=== PATIENT | male | born 1970 | race Caucasian/White ===

== ENCOUNTER → 2017-08-08 | Outpatient (CLI) | payer OTHER ==
--- NOTE | 2017-08-09 08:08 | US ---
EXAM DESCRIPTION: Venous,Lower Extremity RT CLINICAL HISTORY: 47 years, Male, CELLULITIS OF THE LEG COMPARISON: None TECHNIQUE: Duplex venous ultrasound of the right lower extremity was performed. FINDINGS: The right lower extremity veins are fully compressible and demonstrate physiologic responses to augmentation maneuvers. Color Doppler images show no intraluminal filling defect. IMPRESSION: Negative exam. No evidence of DVT in the right lower extremity. Electronically signed by: Andrea Montilla MD 08/09/2017 8:07 AM CDT
== END ==
LOC: US 11:50
PROVIDERS: ATTEND Family Medicine
DX: L03.115 Cellulitis of right lower limb (principal); R60.0 Localized edema

== ENCOUNTER 2017-08-14 12:54 | Inpatient (IN) | payer OTHER ==
--- NOTE | 2017-08-14 12:56 | HP ---
SUPERVISING PHYSICIAN: Jayce Brownlee MD CHIEF COMPLAINT: Cellulitis, right lower extremity. HISTORY OF PRESENT ILLNESS: Mr. Bautista is a 47 year-old male patient of Dr. Cox. He was initially seen last week on Monday for sore throat and right lower extremity cellulitis. He had a positive strep screen in the clinic and was started on Cefzil and Bactrim in for treatment of lower extremity cellulitis. 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 On Monday morning, the leg had not gotten any better at which time he made an appointment to see Dr. Teran on Monday. He denied any recent trauma other than he thinks he may have scraped his lower leg krishna area on the kamla yu at some point in the weeks previous. He was showing very little response to current treatment throughout the last week and had a DVT study done as well for the lower extremity swelling which was negative for any DVT. He was seen in followup today and had shown acute worsening of his swelling and tenseness and redness and pain. Given that he had failed to respond to current treatment with Bactrim and Cefzil, Dr. Teran requested the patient be directly admitted for initiation of parenteral antibiotic therapy and further wound management. The patient was directly admitted from the clinic in stable condition. PAST MEDICAL HISTORY: 1. Hypertension. 2. Seasonal allergies. PAST SURGICAL HISTORY: 1. Rhinoplasty in 2013. 2. Cervical spine surgery in 2012 and 2014. 3. Right knee scope in 2009. CURRENT MEDICATIONS: 1. Vitamin D3, 5000 units daily. 2. Wellbutrin 100 mg daily. 3. Meloxicam 15 mg daily. 4. Hydrochlorothiazide 25 mg daily. 5. Flonase 1 spray in both nostrils daily. 6. Lotrimin cream, one application topical as needed. 7. Amlodipine 10 mg daily. 8. Antibiotic treatment with Bactrim 800/160, one tablet b.i.d. 9. Cefzil 250 mg b.i.d. 10. Metoprolol tartrate 100 mg b.i.d. 11. Lisinopril 40 mg b.i.d. 12. Gabapentin 600 mg t.i.d. ALLERGIES: IODINE AND MORPHINE. FAMILY HISTORY: Father at age 72 secondary to hypertension and cardiac arrhythmia. Mother apparently living with hypertension and lymphoma. SOCIAL HISTORY: The patient lives in [place], [place]. He is . 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 He currently uses smokeless tobacco but has never smoked. He drinks alcohol on a social occasion, typically beer. REVIEW OF SYSTEMS: CONSTITUTIONAL: Denies any fevers or chills. HEENT: Recent treatment for a sore throat with a positive strep screen but denies any current symptoms. No nasal congestion or headaches or earaches. RESPIRATORY: Denies shortness of breath, coughing or wheezing. CARDIOVASCULAR: Denies chest pain, palpitations or syncopal episodes. ABDOMEN: Denies nausea or vomiting. He does have some infrequent diarrhea after he has been started on Bactrim and Cefzil. No abdominal pains. EXTREMITIES: As per history of present illness, lower extremity cellulitis and redness for over a week to the right leg. NEUROLOGICAL: Denies any syncopal episodes, ataxia, seizures or other neurological focal deficits. PHYSICAL EXAMINATION: VITAL SIGNS: Temperature on admission was 97.6, pulse 89, blood pressure 136/86 , respirations 18, saturation 98% on room air. Admission weight was 141.1 kg. GENERAL: The patient appeared to be in no acute distress but obviously in some pain secondary to his right lower extremity cellulitis. He is alert and oriented x 3. HEENT: Tympanic membranes clear bilaterally. Oropharynx pink and moist without any lesions. NECK: Supple, non-tender with full range of motion. No jugular venous distention. CHEST: Clear to auscultation bilaterally without rhonchi, rales, or wheezes. CARDIOVASCULAR: Regular rate and rhythm without appreciable murmurs, rubs, or gallops. ABDOMEN: Obese, soft, non-tender, positive bowel sounds. EXTREMITIES: Left lower extremity has no cyanosis, clubbing, or edema. Right extremity from the patella down to distal portions of the foot shows 1 to 2+ edema with various stages of erythema. On the medial aspect distal end of the tib/fib overlying the medial malleolus there are multiple areas of what appear to be yellow blisters with some serous type drainage but no areas of consolidation or abscess. Pulses were bilaterally equal. Capillary refill brisk. NEUROLOGIC: He is alert and oriented x 3. Facial features are symmetrical. Extraocular movements are within normal limits. Cranial nerves II through XII are grossly intact. LABORATORY: CBC showed a white count of 8,50 with a hemoglobin of 12.4 and hematocrit of 24.4. Platelet count 359,000, differential was pending at time of admission. Chemistries showed normal electrolytes, potassium 4.2, glucose 114, hemoglobin A1C of 5.6. Lactic acid 1.0. Liver functions all within normal limits. C-reactive protein elevated at 18.7. Serum total protein elevated at 8.3 with globulin at 5.1. Urinalysis showed a small amount of bilirubin, otherwise within normal limits. MICROBIOLOGY: Wound culture of the right leg is pending. Blood cultures pending. RADIOLOGY: X-rays of the right ankle, right foot and right tib/fib were completed on admission without any acute findings for fracture or dislocation or foreign bodies. He had a lower extremity DVT study on the right on 08/08/17 that showed per radiology interpretation no evidence of a DVT. ASSESSMENT: 1. Cellulitis, purulent, of the right lower extremity having failed to respond to outpatient treatment plan with both Bactrim and second generation cephalosporin requiring initiation of parental antibiotics and wound management. 2. Hypertension. 3. Seasonal allergies. 4. Recent streptococcal pharyngeal infection treated with Cefzil. PLAN: The patient is going to be admitted directly to the hospital for initiation of parenteral antibiotics to include Unasyn 3 grams every 6 hours along with vancomycin per pharmacy protocol. Antibiotics were started after wound cultures and blood cultures are completed. Will await culture results to further target antibiotic therapy. Dr. Ly has been consulted for assistance in wound management. I have ordered at DVT study of the lower extremity to further rule out a thrombolytic process as the patient is at high risk for DVTs. The patient will be encouraged to stay off his right foot and keep the leg elevated while in bed. Will defer wound management to Dr. Ly. Will resume his home medications until they have been updated and verified in the electronic medical records. Will anticipate his length of stay to be at least 2 to 3 days. Until clinically stable to be transitioned to p.o. antibiotics, the patient will be closely monitored and treated appropriately. #[id number] [facility]
[2017-08-14] MEDS ORDERED: KETOROLAC TROMETHAMINE INJ 30 MG/ML VIAL IV ONE (13:30)
[2017-08-14] MEDS ORDERED: ACETAMINOPHEN 325 MG TAB PO PRN (13:30)
[2017-08-14] MEDS ORDERED: HYDROmorphone HCL INJ 2 MG/ML VIAL ONE (13:30)
[2017-08-14] MEDS ORDERED: KETOROLAC TROMETHAMINE INJ 30 MG/ML VIAL ONE (13:30)
[2017-08-14] MEDS ORDERED: HYDROmorphone HCL INJ 2 MG/ML VIAL IV ONE (13:30)
--- NOTE | 2017-08-14 13:39 | PCM.CORE ---
Physician DVT/VTE - Nurse DVT Assessment & Total Each Risk Factor Represents 3 Points: Medical PT with Hx of OK, CHF, Severe infection/sepsis Each Risk Factor Represents 1 Point: Age 41-60 Each Risk Factor is 1 Point: Varicose Veins/Edema Legs, Obesity (BMI >25) DVT Assessment Score: 6 - 5 or more Very High Risk Treatments: Early Ambulation *, Sequential Compression Device Pharmacological: Enoxaparin 40mg SQ Daily
[2017-08-14] MEDS: IV SET AND CAP CHANGE INJ INJ SCH (13:58)
[2017-08-14] MEDS ORDERED: VANCOMYCIN PER PHARMACY INJ SCH (14:00)
[2017-08-14] MEDS ORDERED: SODIUM CHL 0.9% 100ML MINI-BAG 100 ML IVPB ONE ×3 (14:13→19:26)
[2017-08-14] MEDS ORDERED: AMPICILLIN & SULBACTAM SODIUM 3 GM VIAL ONE ×3 (14:14→19:26)
[2017-08-14] MEDS: HYDROcodone 5MG/APAP 325MG 1 EA TAB PO PRN ×2 (14:26→20:56)
[2017-08-14] MEDS: ENOXAPARIN SODIUM 40 MG/0.4 ML SYG SUBCU SCH (14:27)
[2017-08-14] MEDS: AMPICILLIN & SULBACTAM SODIUM 3 GM in SODIUM CHL 0.9% 100ML MINI-BAG 100 ML IVPB SCH ×2 (14:28→19:38)
--- NOTE | 2017-08-14 14:45 | RAD ---
EXAM DESCRIPTION: Ankle,Right 2 Views CLINICAL HISTORY: 47 years Male, RLE cellulitis COMPARISON: None. FINDINGS: Two views of the right ankle show diffuse soft tissue swelling, slightly worse medially. No acute fracture or malalignment. No joint effusion. No radiopaque foreign body or soft tissue gas. No lytic or sclerotic bone lesion. Calcaneal enthesophyte formation is noted at the insertion sites of the plantar fascia and Achilles tendon. IMPRESSION: Soft tissue swelling without radiographic evidence of osteomyelitis, abscess or other acute right ankle abnormality. Calcaneal spurring. Electronically signed by: Andrea Montilla MD 08/14/2017 2:44 PM CDT
--- NOTE | 2017-08-14 14:46 | RAD ---
EXAM DESCRIPTION: Foot,Right 3 Views CLINICAL HISTORY: 47 years Male, RLE cellulitis COMPARISON: None. FINDINGS: Three views of the right foot show no acute fracture or malalignment. No radiopaque foreign body or soft tissue gas. There is diffuse soft tissue swelling over the right mid and forefoot. Calcaneal enthesophyte formation is noted at the insertion sites of the plantar fascia and Achilles tendon. IMPRESSION: Soft tissue swelling without radiographic evidence of osteomyelitis or abscess. If clinically suspicious of osteomyelitis, MRI should be considered. Calcaneal spurring. Electronically signed by: Andrea Montilla MD 08/14/2017 2:45 PM CDT
--- NOTE | 2017-08-14 14:47 | RAD ---
EXAM DESCRIPTION: Tibia/Fibula,Right CLINICAL HISTORY: 47 years Male, RLE cellulitis COMPARISON: None. FINDINGS: Two views of the right tibia and fibula show no acute fracture or malalignment. No radio opaque foreign body or soft tissue gas. Medial joint space narrowing and medial osteophyte formation are noted in the right knee. IMPRESSION: Degenerative changes in the right knee, otherwise unremarkable exam. Electronically signed by: Andrea Montilla MD 08/14/2017 2:46 PM CDT
[2017-08-14] MEDS ORDERED: VANCOMYCIN HCL INJ 1,000 MG VIAL IVPB ONE ×2 (15:24→19:25)
[2017-08-14] MEDS ORDERED: SODIUM CHLORIDE 0.9% 250ML 250 ML ONE ×2 (15:24→19:24)
[2017-08-14] MEDS ORDERED: VANCOMYCIN HCL INJ 500 MG VIAL ONE ×2 (15:24→19:24)
[2017-08-14] MEDS: VANCOMYCIN HCL INJ 1,000 MG, VANCOMYCIN HCL INJ 500 MG in SODIUM CHLORIDE 0.9% 250ML 25... IVPB SCH ×2 (15:32→23:37)
--- NOTE | 2017-08-14 15:48 | US ---
EXAM DESCRIPTION: Venous,Lower Extremity RT CLINICAL HISTORY: worsening cellulitis of RLE COMPARISON: Ultrasound dated 08/08/2017. TECHNIQUE: Right extremity venous duplex FINDINGS: There is no DVT identified. There is normal color flow observed with good flow augmentation. All deep veins compress normally. IMPRESSION: Negative for DVT Electronically signed by: Aysha Campos MD 08/14/2017 3:46 PM CDT
[2017-08-14] MEDS: hydroCHLOROthiazide 25 MG TAB PO SCH (17:53)
[2017-08-14] MEDS: amLODIPine BESYLATE 5 MG TAB PO SCH (17:53)
[2017-08-14] MEDS: BUPROPION HCL 100 MG PO SCH (17:56)
--- NOTE | 2017-08-14 18:49 | CONS ---
DATE OF CONSULTATION: 08/14/17 REFERRING PHYSICIAN: Hospitalist Service - Jayce Brownlee M.D. and Manas Hoskins NP HISTORY OF PRESENT ILLNESS: Mr. Bautista is a 47 year-old male patient of Dr. Teran's who was seen 6 days ago for a sore throat and cellulitis of his right lower extremity. He was seen by Dr. Teran and a Strep screen was positive, and he was started on Cefzil and Bactrim. On Monday, the leg had not improved. He was seen and showed worsening of the swelling and tenderness, and he was directly admitted from Dr. Teran's office. There is no history of any significant trauma, although the patient does have a scratch on his anterior right leg. He denies fever or chills. He states that the pain is in the posterior right leg. PAST MEDICAL HISTORY: 1. Allergies. 2. Hypertension. PAST SURGICAL HISTORY: 1. Status post rhinoplasty. 2. Cervical spine surgery times 2. 3. Right knee scope. CURRENT MEDICATIONS: 1. Wellbutrin. 2. Meloxicam. 3. Hydrochlorothiazide. 4. Flonase. 5. Lotrimin. 6. Amlodipine. 7. Bactrim. 8. Cefzil. 9. Metoprolol. 10. Lisinopril. 11. Gabapentin. ALLERGIES: IODINE AND MORPHINE. FAMILY HISTORY: Positive for heart disease, hypertension and lymphoma. 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 He has not smoked but uses smokeless tobacco. He drinks alcohol moderately. REVIEW OF SYSTEMS: As noted, he denies fever or chills. Denies significant trauma to his lower extremities. He does complain of daily swelling but usually resolves overnight. He has had no nausea or vomiting, change in his bowel habits. Denies chest pain, shortness of breath. PHYSICAL EXAMINATION: VITAL SIGNS: The patient is afebrile and normotensive. GENERAL: He is currently in no acute distress. He is awake, alert and cooperative. HEENT: Reveals the sclera to be nonicteric. Mucous membranes are moist. NECK: Without adenopathy. CHEST: He has equal breath sounds bilaterally. HEART: Regular rhythm. ABDOMEN: Soft and benign. EXTREMITIES: Right lower extremity reveals 2 to 3+ edema with erythema which is marked by a pen. There is a linear eschar without any significant surrounding erythema. No induration or fluctuance. There is also an area of eschar over the medial malleolus without fluctuance or crepitance. It is tender in the posterior calf. LABORATORY: White count 8,500, hemoglobin 12. Chemistries revealed potassium 4.2, hemoglobin A1c of 5.6. Liver functions within normal limits. C reactive protein is 18.7. Wound culture is pending. X-RAY: X-rays reveal no fractures or foreign bodies. DVT study last week showed no evidence of DVT. IMPRESSION: 1. Cellulitis with edema of the right lower extremity with failed outpatient therapy. 2. Hypertension. 3. Recent streptococcal pharyngitis PLAN: Agree with the plan for IV antibiotics and await cultures. Stress to the patient the need for elevation. Could possibly consider repeating an ultrasound to rule out DVT and/or abscess if the patient fails to resolve quickly. #[id number] [facility]
[2017-08-14] MEDS ORDERED: GABAPENTIN 300 MG CAP ONE (19:24)
[2017-08-14] MEDS ORDERED: LISINOPRIL 10 MG TAB ONE (19:24)
[2017-08-14] MEDS ORDERED: METOPROLOL TARTRATE 50 MG TAB ONE (19:25)
[2017-08-14] MEDS: BIFIDOBACTERIUM INFANTIS 4 MG CAP PO SCH (20:43)
[2017-08-14] MEDS ORDERED: NON-FORMULARY MEDICATION 1 EA MIS (Lisinopril [Lisinopril] 40 MG) PO SCH (21:00)
[2017-08-14] MEDS ORDERED: NON-FORMULARY MEDICATION 1 EA MIS (Metoprolol Tartrate [Metoprolol Tartrate] 100 MG) PO SCH (21:00)
[2017-08-14] MEDS ORDERED: NON-FORMULARY MEDICATION 1 EA MIS (Gabapentin [Gabapentin] 600 MG) PO SCH (21:00)
[2017-08-15] MEDS: AMPICILLIN & SULBACTAM SODIUM 3 GM in SODIUM CHL 0.9% 100ML MINI-BAG 100 ML IVPB SCH ×4 (01:57→20:23)
[2017-08-15] MEDS: HYDROcodone 5MG/APAP 325MG 1 EA TAB PO PRN ×3 (01:57→10:45)
[2017-08-15] MEDS ORDERED: VANCOMYCIN HCL INJ 500 MG VIAL ONE ×3 (07:05→23:28)
[2017-08-15] MEDS ORDERED: SODIUM CHLORIDE 0.9% 250ML 250 ML ONE ×3 (07:05→23:28)
[2017-08-15] MEDS ORDERED: SODIUM CHL 0.9% 100ML MINI-BAG 100 ML IVPB ONE ×3 (07:06→20:19)
[2017-08-15] MEDS ORDERED: VANCOMYCIN HCL INJ 1,000 MG VIAL IVPB ONE ×3 (07:07→23:29)
[2017-08-15] MEDS ORDERED: AMPICILLIN & SULBACTAM SODIUM 3 GM VIAL ONE ×3 (07:07→20:19)
[2017-08-15] MEDS: VANCOMYCIN HCL INJ 1,000 MG, VANCOMYCIN HCL INJ 500 MG in SODIUM CHLORIDE 0.9% 250ML 25... IVPB SCH ×3 (08:30→23:45)
[2017-08-15] MEDS: BIFIDOBACTERIUM INFANTIS 4 MG CAP PO SCH ×2 (08:51→20:39)
[2017-08-15] MEDS: METOPROLOL TARTRATE 50 MG TAB PO SCH ×2 (08:51→16:47)
[2017-08-15] MEDS: amLODIPine BESYLATE 5 MG TAB PO SCH (08:51)
[2017-08-15] MEDS: hydroCHLOROthiazide 25 MG TAB PO SCH (08:51)
[2017-08-15] MEDS: GABAPENTIN 300 MG CAP PO SCH ×3 (08:52→20:39)
[2017-08-15] MEDS: LISINOPRIL 10 MG TAB PO SCH ×2 (08:52→20:39)
[2017-08-15] MEDS: FLUTICASONE PROP 0.05% NASAL 16 GM BTTL BNAS SCH (09:33)
[2017-08-15] MEDS: ENOXAPARIN SODIUM 40 MG/0.4 ML SYG SUBCU SCH (09:33)
[2017-08-15] MEDS: BUPROPION HCL 100 MG PO SCH (09:35)
--- NOTE | 2017-08-15 10:18 | PN ---
SUPERVISING PHYSICIAN: Jayce Brownlee MD DATE: 08/15/17 SUBJECTIVE: The patient feels okay. He feels like he has had some improvement regarding his cellulitis. He is able to walk to the bathroom and back with no problem, but does state that he feels like the muscle in the back of his leg is a little bit tight. He did have Doppler of the lower extremity yesterday which ruled out DVT. He has been placed on Unasyn and vancomycin and has not had any problems tolerating these so far. OBJECTIVE: VITAL SIGNS: Blood pressure 113/72. Heart rate 69. Respiratory rate 18. Temperature 99.2. Oxygen saturation 97%. GENERAL: Mr. Bautista is a 47-year-old male patient who is in no active distress currently. NEUROLOGIC: Alert and oriented. LUNGS: Clear to auscultation bilaterally. CARDIOVASCULAR: Regular rate and rhythm. Normal S1, S2. ABDOMEN: Obese, soft. Positive bowel sounds. GENITOURINARY: Deferred. EXTREMITIES: Lower extremities still with cellulitis to the right lower extremity. Regarding the markings, it appears that the erythema has receded from the marked borders a bit, but is still quite present at this time. Warm to the touch. ASSESSMENT: 1. Right lower extremity cellulitis with an open wound. 2. Hypertension. 3. Recent streptococcal pharyngitis. 4. Seasonal allergies. PLAN: We will continue IV antibiotics at this time. Culture is still pending, so we will cover for resistant organisms with the vancomycin. He seems to be improving with the antibiotics. We will recheck labs in the morning as well. #[id number] [facility]
[2017-08-15] MEDS: HYDROcodone 7.5MG/APAP 325MG 1 EA TAB PO PRN (20:55)
[2017-08-16] MEDS: HYDROcodone 7.5MG/APAP 325MG 1 EA TAB PO PRN ×5 (01:20→20:56)
[2017-08-16] MEDS ORDERED: AMPICILLIN & SULBACTAM SODIUM 3 GM VIAL ONE ×5 (01:34→19:49)
[2017-08-16] MEDS ORDERED: SODIUM CHL 0.9% 100ML MINI-BAG 100 ML IVPB ONE ×5 (01:34→19:49)
[2017-08-16] MEDS: AMPICILLIN & SULBACTAM SODIUM 3 GM in SODIUM CHL 0.9% 100ML MINI-BAG 100 ML IVPB SCH ×4 (02:30→20:20)
[2017-08-16] MEDS: SODIUM CHLORIDE 0.9% (FLUSH) 10 ML SYG IV PRN ×2 (02:31→20:20)
[2017-08-16] MEDS: METOPROLOL TARTRATE 50 MG TAB PO SCH ×2 (07:42→17:20)
[2017-08-16] MEDS ORDERED: VANCOMYCIN HCL INJ 500 MG VIAL ONE ×3 (08:16→19:47)
[2017-08-16] MEDS ORDERED: SODIUM CHLORIDE 0.9% 250ML 250 ML ONE ×3 (08:16→19:47)
[2017-08-16] MEDS ORDERED: VANCOMYCIN HCL INJ 1,000 MG VIAL IVPB ONE ×3 (08:17→19:48)
[2017-08-16] MEDS: VANCOMYCIN HCL INJ 1,000 MG, VANCOMYCIN HCL INJ 500 MG in SODIUM CHLORIDE 0.9% 250ML 25... IVPB SCH ×3 (08:24→23:51)
[2017-08-16] MEDS: GABAPENTIN 300 MG CAP PO SCH ×3 (08:25→20:54)
[2017-08-16] MEDS: BUPROPION 300 MG PO SCH (08:25)
[2017-08-16] MEDS: amLODIPine BESYLATE 5 MG TAB PO SCH (08:25)
[2017-08-16] MEDS: BIFIDOBACTERIUM INFANTIS 4 MG CAP PO SCH ×2 (08:25→20:54)
[2017-08-16] MEDS: hydroCHLOROthiazide 25 MG TAB PO SCH (08:26)
[2017-08-16] MEDS: LISINOPRIL 10 MG TAB PO SCH ×2 (08:26→21:00)
[2017-08-16] MEDS: ENOXAPARIN SODIUM 40 MG/0.4 ML SYG SUBCU SCH (08:26)
--- NOTE | 2017-08-16 08:30 | PN ---
SUPERVISING PHYSICIAN: Jayce Brownlee MD DATE: 08/16/17 SUBJECTIVE: The patient states his pain is pretty controlled, but they did call me last night asking if there could be an increase in the pain medicine, so I went from 5 mg of Hamilton to 7.5 mg of Hamilton. He states that has helped quite a bit. He also states he walks to the bathroom and back, but has some pain with that. I did ask him to walk in the mahmood today a couple of times. OBJECTIVE: VITAL SIGNS: Blood pressure 112/72. Heart rate 73. Respiratory rate 20. Temperature 98.5. Oxygen saturation 94%. GENERAL: Mr. Bautista is a 47-year-old male patient who is in no distress currently. NEUROLOGIC: Alert and oriented. LUNGS: A little bit diminished in the bases, but otherwise clear to auscultation bilaterally. CARDIOVASCULAR: Regular rate and rhythm. Normal S1, S2. ABDOMEN: Obese, soft. Positive bowel sounds. GENITOURINARY: Deferred. EXTREMITIES: Lower extremities still with cellulitis to the right lower extremity, but it is definitely receding from the existing watson. The swelling is reduced. The skin is wrinkling up. It is still warm to the touch. LABORATORY: Labs were reviewed. White count 10.9, hemoglobin 12.1, hematocrit 35.9, platelet count 430. ESR 38, which is an improvement from 73. Chemistries are unremarkable with an improvement in CRP to 8.8 from 18.7. Cultures are still reading negative at this time. ASSESSMENT: 1. Right lower extremity cellulitis with an open wound. 2. Hypertension. 3. Recent streptococcal pharyngitis. 4. Seasonal allergies. PLAN: He shows clinical improvement with improvement in CRP and ESR despite negative cultures. We will continue current antibiotic regimen and continue to recheck labs in the morning as well. #[id number] [facility]
[2017-08-16] MEDS: FLUTICASONE PROP 0.05% NASAL 16 GM BTTL BNAS SCH (08:52)
[2017-08-17] MEDS: AMPICILLIN & SULBACTAM SODIUM 3 GM in SODIUM CHL 0.9% 100ML MINI-BAG 100 ML IVPB SCH ×4 (01:54→20:13)
[2017-08-17] MEDS: HYDROcodone 7.5MG/APAP 325MG 1 EA TAB PO PRN ×3 (01:57→12:56)
[2017-08-17] MEDS ORDERED: SODIUM CHL 0.9% 100ML MINI-BAG 100 ML IVPB ONE ×3 (06:51→20:03)
[2017-08-17] MEDS ORDERED: AMPICILLIN & SULBACTAM SODIUM 3 GM VIAL ONE ×3 (06:51→20:04)
[2017-08-17] MEDS: METOPROLOL TARTRATE 50 MG TAB PO SCH ×2 (07:19→16:31)
[2017-08-17] MEDS ORDERED: VANCOMYCIN HCL INJ 1,000 MG VIAL IVPB ONE ×2 (07:35→20:58)
[2017-08-17] MEDS ORDERED: SODIUM CHLORIDE 0.9% 250ML 250 ML ONE (07:35)
[2017-08-17] MEDS ORDERED: VANCOMYCIN HCL INJ 500 MG VIAL ONE (07:35)
[2017-08-17] MEDS: VANCOMYCIN HCL INJ 1,000 MG, VANCOMYCIN HCL INJ 500 MG in SODIUM CHLORIDE 0.9% 250ML 25... IVPB SCH ×2 (07:59→16:25)
[2017-08-17] MEDS: BUPROPION 300 MG PO SCH (08:00)
[2017-08-17] MEDS: BIFIDOBACTERIUM INFANTIS 4 MG CAP PO SCH ×2 (08:00→21:10)
[2017-08-17] MEDS: amLODIPine BESYLATE 5 MG TAB PO SCH (08:01)
[2017-08-17] MEDS: LISINOPRIL 10 MG TAB PO SCH (08:01)
[2017-08-17] MEDS: GABAPENTIN 300 MG CAP PO SCH ×3 (08:01→21:09)
[2017-08-17] MEDS: hydroCHLOROthiazide 25 MG TAB PO SCH (08:01)
[2017-08-17] MEDS: ENOXAPARIN SODIUM 40 MG/0.4 ML SYG SUBCU SCH (08:04)
[2017-08-17] MEDS: FLUTICASONE PROP 0.05% NASAL 16 GM BTTL BNAS SCH (08:10)
--- NOTE | 2017-08-17 11:23 | PN ---
SUPERVISING PHYSICIAN: Jayce Brownlee MD DATE: 08/17/17 SUBJECTIVE: The patient's pain is controlled at rest. He states he still has some calf pain when he walks. With flexion towards his head he also has some calf pain. Once again, he did have his Doppler on the which was negative for DVT. OBJECTIVE: VITAL SIGNS: Blood pressure 123/76. Heart rate 71. Respiratory rate 14. Temperature 98.4. Oxygen saturation 96%. GENERAL: Mr. Bautista is a 47-year-old male patient who is in no distress. NEUROLOGIC: Alert and oriented. LUNGS: Clear to auscultation bilaterally. CARDIOVASCULAR: Regular rate and rhythm. Normal S1, S2. ABDOMEN: Obese, soft. Positive bowel sounds. GENITOURINARY: Deferred. EXTREMITIES: Lower extremities with continued cellulitis to the lower extremity , but continues to recede from the marked areas. In fact, there is a new marked border and it is even receding from that. Edema seems to be improving as well. LABORATORY: White count 11, hemoglobin 11.8, hematocrit 35.8, platelet count 449. There is no lefts shift. Chemistries are unremarkable. ASSESSMENT: 1. Right lower extremity cellulitis. 2. Hypertension. 3. Recent streptococcal pharyngitis. 4. Seasonal allergies. PLAN: His culture actually came back with Enterococcus, however, I do not have sensitivity as of yet, so we will continue current antibiotics. We will recheck labs tomorrow. There is an elevation of the white count as well as platelet count, but I do not see any left shift at this time. I rechecked a Doppler of his lower extremity to ensure there was not a clot, and it was still negative. So his pain is likely deconditioning from not walking much and needing to stretch the calf. #[id number] [facility]
--- NOTE | 2017-08-17 12:26 | US ---
EXAM DESCRIPTION: Venous,Lower Extremity RT CLINICAL HISTORY: still with calf pain, want to double check COMPARISON: Previous study of the right lower extremity August 14, 2017 TECHNIQUE: Right lower extremity venous duplex FINDINGS: Doppler evaluation of the right lower extremity deep veins was performed. Normal color flow is seen in the common femoral, superficial femoral, profunda femoral and greater saphenous veins. Normal flow is seen in the popliteal vein and veins below the knee in the calf. Normal venous compressibility and flow augmentation. No change since previous study. IMPRESSION: Negative for evidence of deep venous thrombosis on right lower extremity venous Doppler sonogram. Electronically signed by: Serge Sylvester MD 08/17/2017 12:24 PM CDT
[2017-08-17] MEDS: IV SET AND CAP CHANGE INJ INJ SCH (12:45)
[2017-08-17] MEDS ORDERED: SODIUM CHLORIDE 0.9% 500ML 500 ML ONE (20:57)
[2017-08-17] MEDS: VANCOMYCIN HCL INJ 1,750 MG in SODIUM CHLORIDE 0.9% 500ML 500 ML IVPB SCH (21:10)
[2017-08-17] MEDS: HYDROcodone 10MG/APAP 325MG 1 EA TAB PO PRN (21:11)
[2017-08-18] MEDS ORDERED: SODIUM CHL 0.9% 100ML MINI-BAG 100 ML IVPB ONE ×2 (02:13→07:48)
[2017-08-18] MEDS: HYDROcodone 10MG/APAP 325MG 1 EA TAB PO PRN ×3 (02:17→12:16)
[2017-08-18] MEDS: AMPICILLIN & SULBACTAM SODIUM 3 GM in SODIUM CHL 0.9% 100ML MINI-BAG 100 ML IVPB SCH ×2 (02:19→08:13)
[2017-08-18 03:17] VITALS: TEMP 98.4
[2017-08-18] MEDS ORDERED: SODIUM CHLORIDE 0.9% 500ML 500 ML ONE ×2 (07:31→10:41)
[2017-08-18] MEDS ORDERED: VANCOMYCIN HCL INJ 1,000 MG VIAL IVPB ONE ×2 (07:31→10:41)
[2017-08-18] MEDS ORDERED: AMPICILLIN & SULBACTAM SODIUM 3 GM VIAL ONE (07:48)
[2017-08-18] MEDS: hydroCHLOROthiazide 25 MG TAB PO SCH (08:07)
[2017-08-18] MEDS: METOPROLOL TARTRATE 50 MG TAB PO SCH (08:07)
[2017-08-18] MEDS: GABAPENTIN 300 MG CAP PO SCH ×2 (08:09→12:15)
[2017-08-18] MEDS: BIFIDOBACTERIUM INFANTIS 4 MG CAP PO SCH (08:10)
[2017-08-18] MEDS: ENOXAPARIN SODIUM 40 MG/0.4 ML SYG SUBCU SCH (08:11)
[2017-08-18] MEDS: BUPROPION 300 MG PO SCH (08:13)
[2017-08-18] MEDS: VANCOMYCIN HCL INJ 1,750 MG in SODIUM CHLORIDE 0.9% 500ML 500 ML IVPB SCH (11:06)
[2017-08-18] MEDS: amLODIPine BESYLATE 5 MG TAB PO SCH (12:08)
[2017-08-18] MEDS: LISINOPRIL 10 MG TAB PO SCH (12:09)
[2017-08-18] MEDS: FLUTICASONE PROP 0.05% NASAL 16 GM BTTL BNAS SCH (12:11)
[2017-08-18 13:27] VITALS: BP 116/78; O2SAT 95
--- NOTE | 2017-08-19 10:27 | DS ---
SUPERVISING PHYSICIAN: Jayce Brownlee MD DISCHARGE DIAGNOSES: 1. Right lower extremity cellulitis, purulent secondary to enterococcus group B species showing sensitive to ampicillin and vancomycin with the patient having been on vancomycin and Unasyn through admission and showed good clinical improvement with no evidence of a DVT. 2. Hypertension. 3. Seasonal allergies. 4. Recent streptococcal pharyngeal infection treated with Cefzil prior to admission. REASON FOR HOSPITALIZATION: Mr. Bautista is a 47 year-old male patient of Dr. Teran's. He was initially seen the week prior to admission on Monday for a sore throat and right lower extremity cellulitis. At that time, he had a positive strep screen in the clinic and was started on Cefzil and Bactrim for treatment of both the strep throat and lower extremity cellulitis. The patient works in the [employer] field and wears boots and overalls but noted the week previous that his right ankle and lower extremity had started to worsen and noticed some redness which he say on Monday. On that Monday prior, the leg had not gotten any better at which time he made an appointment to see Dr. Teran on Monday. He denied any recent trauma other than he thinks he may have scraped his leg krishna area on a kamla yu at some point while at work. He was showing very little response to current treatment plan in the outpatient setting the previous week and also had a DVT study done to rule out a lower extremity DVT which was negative. He was seen in followup on the day of admission by Dr. Teran and noted the area had shown acute worsening and swelling and tenseness and redness. Given that he failed to respond to previous outpatient treatments with Bactrim and Cefzil, Dr. Teran requested the patient be directly admitted for initiation of antibiotics and further wound management. The patient was admitted in stable condition. LABORATORY: CBC on admission showed a white count of 8,500, he did go up to initial maximum of 11,000 but prior to discharge was going down to 9,300. Hemoglobin and hematocrit were stable and on discharge was 12.0 and 35.9 respectively with normal RBC indices. Platelet count was at 466,000 at discharge. He did show a left shift initially on admission with increased bands at 5%. This had resolved prior to discharge and showing normal differential. Sed rate was elevated at 38, prior to discharge had decreased to 31. He had a C-reactive protein at 18.7 and prior to discharge had gone down to 8.1. All other chemistries on admission showed normal electrolytes, normal liver functions and lactic acid of 1.0. Hemoglobin A1C was 5.6. Electrolytes remained within normal limits and date of discharge they were shown known to be normal with a magnesium of 2.1, phosphorous 3.7. Urinalysis on admission showed just a small amount of bilirubin, otherwise was negative. Toxicology included a vancomycin trough on 08/15/17 showed at 12.8. Additional trough on 08/17/17 was 20.3. MICROBIOLOGY: Wound culture of the right leg and final reported showed enterococcus species group B that was sensitive to both vancomycin with an TONEY of 2 and ampicillin with TONEY of less or equal to 2. RADIOLOGY: Initially on admission he had a foot and ankle x-ray of the right along with tib/fib which all showed to be without any acute findings and no fracture or dislocation. Please see those reports for full details. He also had 2 lower extremity DVT studies which were both negative for DVT. Please see those reports for full details. HOSPITAL COURSE: Mr. Bautista was admitted on 08/14/17 for right lower extremity cellulitis. He was initiated on antibiotics to include vancomycin and Unasyn. Cultures were obtained. Dr. Ly was consulted. He managed the wound. The patient did show good response to treatment and the area that was swollen and red had significantly decreased in erythema as well as edema. He had negative DVT studies which showed no complications from antibiotic therapy. He was afebrile. He was felt to be clinically improved well enough to be transitioned to p.o. regimen once his final cultures came back showing enterococcus subspecies both sensitive to vancomycin and ampicillin. PLAN: The patient was discharged on 08/18/17. After talking with Dr. Pina, Infectious Disease Specialist, recommendations were to continue with antibiotic therapy with Augmentin for at least 14 days. He was to continue with wound management, to keep the leg elevated as much as possible. He could shower but no tub baths. He was to resume his home medications as previous to hospitalization. He was encouraged to take a probiotic of choice over-the- counter to prevent any post antibiotic diarrhea. He was told to return to the hospital should he have any worsening of his wound or any other concerning symptoms or call Dr. Teran's office. Discharge diet: As tolerated. Activities: Keep leg elevated and increase activity as tolerated throughout the day. Discharge prescriptions: Augmentin 875 twice a day, #28 and [place] 12/3244, one every 4 hours as needed, #30, prescription written by Dr. Teran. All other prescriptions and medications are continued as previous except for the previous antibiotics were to stop including the Bactrim and Cefzil. The patient is discharged with condition being stable and improved. [facility][id number] [facility]
== END 2017-08-18 15:30 | disposition home or self-care (01) | DRG 603 ==
LOC: MS 12:54
PROVIDERS: ADMIT Nurse Practitioner Family; ATTEND Nurse Practitioner Family
DX: L03.115 Cellulitis of right lower limb (principal); I10 Essential (primary) hypertension; J30.9 Allergic rhinitis, unspecified; F17.290 Nicotine dependence, other tobacco product, uncomplicated; B95.2 Enterococcus as the cause of diseases classified elsewhere; E66.9 Obesity, unspecified; Z68.38 Body mass index [BMI] 38.0-38.9, adult; Z91.048 Other nonmedicinal substance allergy status; Z88.5 Allergy status to narcotic agent; Z79.1 Long term (current) use of non-steroidal anti-inflammatories (NSAID); Z79.899 Other long term (current) drug therapy

== ENCOUNTER → 2017-08-29 | Outpatient (CLI) | payer OTHER | LOC: GMAM 14:39 | PROVIDERS: ATTEND Family Medicine | DX: L03.115 Cellulitis of right lower limb (principal) ==

== ENCOUNTER → 2017-08-30 | Outpatient (CLI) | payer OTHER ==
--- NOTE | 2017-08-31 08:36 | US ---
EXAM DESCRIPTION: Extremity,Lower RT Arteries: Ultrasound. CLINICAL HISTORY: CELLULITIS OF LEG COMPARISON: Deep venous duplex ultrasound evaluation of the lower extremity 08/17/2017. TECHNIQUE: Doppler evaluation of the right lower extremity arterial flow waveforms and velocities. FINDINGS: Arterial waveforms in the right lower extremity are monophasic from the right common femoral artery to the right dorsalis pedis artery. No significant dampening distally.. . Comments: Velocities are unremarkable. IMPRESSION: Monophasic waveforms in the right lower extremity arterial systems but velocities are not abnormal and there are no dampened monophasic waveform distally. Significant atherosclerotic occlusive disease is unlikely. Consider follow-up study of the left lower extremity for comparison or CTA of the bilateral lower extremities. Electronically signed by: Wolf Sewell MD 08/31/2017 8:35 AM CDT
== END ==
LOC: US 14:14
PROVIDERS: ATTEND Family Medicine
DX: L03.115 Cellulitis of right lower limb (principal)

== ENCOUNTER → 2018-03-12 | Outpatient (CLI) | payer BC, OTHER ==
--- NOTE | 2018-03-21 10:35 | MRI ---
EXAM DESCRIPTION: MRI right knee CLINICAL HISTORY: Right knee pain COMPARISON: None. TECHNIQUE: Multiplanar, multisequence MR images of the right knee FINDINGS: Linear fibrosis in the medial infrapatellar fat, evidence of previous arthroscopy. Subluxation of the body of the medial meniscus with oblique tear from the free edge/superior articular surface to the periphery. Loss of meniscal substance also likely related to partial meniscectomy. Contiguous extension of tear to the inferior articular surface at the posterior horn/body junction. Severe medial femorotibial osteoarthritis with complete cartilage loss over the anterior two thirds of the weightbearing joint. Subchondral bony irregularity and multifocal edema with prominent joint line osteophytes No lateral meniscal tear. Mild lateral femorotibial chondrosis. Prominent joint line osteophytes Patellofemoral chondrosis. Prominent marginal osteophytes. Partial thickness fissuring along both sides the joint. Articular osteophyte at the upper apex of the trochlea from grade 4 chondrosis over about 1.7 x 1 cm ACL, PCL, MCL and fibular collateral ligaments are intact Biceps femoris, popliteus and iliotibial band tendons are normal. Mild chronic patellar tendinosis. Quadriceps tendon and tendons of the posterior medial knee are intact Small joint effusion with mild degenerative synovitis. No intra-articular loose body IMPRESSION: Subluxation and tear of the body medial meniscus Severe medial femorotibial osteoarthritis Patellofemoral chondrosis Electronically signed by: Dino Iverson MD 03/21/2018 10:34 AM [facility]
== END ==
LOC: MRI 08:52
PROVIDERS: ATTEND Family Medicine
DX: S83.241A Other tear of medial meniscus, current injury, right knee, initial encounter (principal); M17.11 Unilateral primary osteoarthritis, right knee; M22.41 Chondromalacia patellae, right knee

== ENCOUNTER 2018-05-16 05:33 | Inpatient (IN) | payer BC ==
--- NOTE | 2018-05-11 09:18 | HP ---
CHIEF COMPLAINT: Right knee pain. HISTORY OF PRESENT ILLNESS: Mendoza is a 48-year-old male with a history of pain in the right knee. This has been going on for years and is getting progressively worse. Mendoza and I have talked about his options and he has failed conservative measures. To that end, he has requested operative intervention. After discussing the risks, benefits and alternatives to that, he has given informed consent. PAST SURGICAL HISTORY: 1. Knee arthroscopy. 2. Cervical fusion. MEDICATIONS: 1. Metoprolol. 2. Meloxicam. 3. Hydrochlorothiazide. 4. Gabapentin. 5. [place]. ALLERGIES: IODINE. CODE STATUS: Full code. IMMUNIZATIONS: Up to date. FAMILY HISTORY: None pertinent to today's complaint. SOCIAL HISTORY: The patient does smoke and uses alcohol on occasion, but uses no illicit drugs. REVIEW OF SYSTEMS: Negative except as indicated in the History of Present Illness. PHYSICAL EXAMINATION: VITAL SIGNS: Blood pressure 168/113. Pulse 69. Height 6'3". Weight 335 pounds. MENTAL STATUS: The patient is awake, alert, and is able to give a good history and participate in the physical. The patient is oriented to person, place and time. SKIN: Normal tone and turgor. HEENT: Normocephalic, atraumatic. Pupils equal, round and reactive. Mucosal membranes are moist. NECK: Normal range of motion. No thyromegaly, no lymphadenopathy. CHEST: Normal respiratory excursion. CARDIAC: Regular rate and rhythm. No murmurs, rubs or gallops. MUSCULOSKELETAL: The bilateral upper extremities show full active range of motion without pain. He has intact sensation and they are warm and well perfused. 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 No crepitus. There is no deformity. The left lower extremity shows full range of motion of the hip. He has range of motion of the knee from full extension to flexion of about 120 degrees. He has slight limitation secondary to body habitus. There is no gross overall deformity. Sensation is intact. It is warm and well perfused. The right lower extremity shows full range of motion in the hip. He has painful range of motion of the knee with crepitus. He has a varus deformity. Extension is full with flexion to 120. He is very tender to palpation throughout, but most prominently along the medial aspect. IMAGING: X-rays show endstage arthritis. ASSESSMENT: 1. Osteoarthritis. PLAN: The plan at this point is for total knee arthroplasty. We have discussed the risks, benefits, and alternatives to that and the patient has given informed consent. [facility][id number] [facility]
[2018-05-16] MEDS ORDERED: raNITIdine HCL INJ 25 MG/ML VIAL ONE (07:00)
[2018-05-16] MEDS ORDERED: diphenhydrAMINE HCL 50 MG/ML VIAL ONE (07:00)
[2018-05-16] MEDS ORDERED: METOCLOPRAMIDE HCL INJ 10 MG/2 ML VIAL ONE (07:00)
[2018-05-16] MEDS ORDERED: PROPOFOL 200 MG/20 ML VIAL IV ONE (07:00)
[2018-05-16] MEDS ORDERED: DEXAMETHASONE INJ 10 MG/ML VIAL ONE (07:00)
[2018-05-16] MEDS ORDERED: ePHEDrine SULF 50 MG/ML ONE (07:00)
[2018-05-16] MEDS ORDERED: LIDOCAINE 1% 10 ML VIAL INJ ONE (07:00)
[2018-05-16] MEDS ORDERED: ceFAZolin SODIUM 1 GM VIAL ONE ×2 (08:17→08:39)
[2018-05-16] MEDS ORDERED: SODIUM CHL 0.9% 100ML MINI-BAG 100 ML IVPB ONE (08:38)
[2018-05-16] MEDS ORDERED: VANCOMYCIN HCL INJ 1,000 MG VIAL IVPB ONE ×2 (08:39→20:48)
[2018-05-16] MEDS ORDERED: TRANEXAMIC ACID 1,000 MG/10 ML VIAL ONE ×2 (08:39→08:40)
[2018-05-16] MEDS ORDERED: LACTATED RINGERS 1,000 ML ONE (08:39)
[2018-05-16] MEDS ORDERED: SODIUM CHLORIDE 0.9% 250ML 250 ML ONE (08:39)
[2018-05-16] MEDS ORDERED: SODIUM CHLORIDE 0.9% 100ML 100 ML IVPB ONE (08:40)
[2018-05-16] MEDS ORDERED: ACETAMINOPHEN IV 1000MG 100 ML ONE (09:13)
[2018-05-16] MEDS ORDERED: MORPHINE SULFATE *EPIDURAL* 0.5 MG/ML VIAL ONE (09:14)
[2018-05-16] MEDS ORDERED: MIDAZOLAM INJ 5 MG/5 ML VIAL ONE (09:14)
[2018-05-16] MEDS ORDERED: fentaNYL CITRATE INJ 50 MCG/ML AMP ONE (09:14)
[2018-05-16] MEDS ORDERED: NALOXONE HCL INJ 0.4 MG/ML VIAL IV PRN (09:18)
[2018-05-16] MEDS ORDERED: SODIUM CHLORIDE 0.9% (FLUSH) 10 ML SYG IV PRN (09:18)
[2018-05-16] MEDS ORDERED: TEMAZEPAM 15 MG CAP PO PRN (09:18)
[2018-05-16] MEDS ORDERED: MORPHINE SULFATE INJ 10 MG/ML VIAL IV PRN (09:18)
[2018-05-16] MEDS ORDERED: PROMETHAZINE HCL INJ 25 MG in SODIUM CHLORIDE 0.9% 50ML 50 ML IVPB PRN (09:18)
[2018-05-16] MEDS ORDERED: TRANEXAMIC ACID INJ 1,000 MG in SODIUM CHLORIDE 0.9% 100ML 100 ML IVPB ONE (09:18)
[2018-05-16] MEDS ORDERED: ONDANSETRON INJ 4 MG/2 ML VIAL IV PRN (09:18)
[2018-05-16] MEDS ORDERED: ACETAMINOPHEN 500 MG TAB PO PRN (09:18)
[2018-05-16] MEDS ORDERED: BISACODYL SUPPOSITORY 10 MG PR PRN (09:18)
[2018-05-16] MEDS ORDERED: MAGNESIUM HYDROXIDE 30 ML UD PO PRN (09:18)
[2018-05-16] MEDS ORDERED: ACETAMINOPHEN 325 MG TAB PO PRN (09:18)
[2018-05-16] MEDS ORDERED: PROMETHAZINE HCL INJ 12.5 MG in SODIUM CHLORIDE 0.9% 50ML 50 ML IVPB PRN (09:18)
[2018-05-16] MEDS ORDERED: BENZOCAINE-MENTH LOZ (CEPACOL) 1 EA LOZ MT PRN (09:18)
[2018-05-16] MEDS ORDERED: ZOLPIDEM TARTRATE 5 MG TAB PO PRN (09:18)
[2018-05-16] MEDS ORDERED: ALUMINUM & MAGNESIUM HYDROXIDE 30 ML UD PO PRN (09:18)
[2018-05-16] MEDS ORDERED: MORPHINE PCA 1 MG/ML 100 ML BAG IVPB SCH (09:30)
[2018-05-16] MEDS ORDERED: HYDROmorphone PCA 0.2 MG/ML 1 BAG BAG IVPB SCH (09:30)
[2018-05-16] MEDS ORDERED: IV SET AND CAP CHANGE INJ INJ SCH (09:30)
[2018-05-16] MEDS ORDERED: ROCURONIUM BROMIDE 10 MG/ML VIAL ONE (10:33)
[2018-05-16] MEDS: ceFAZolin SODIUM 1 GM VIAL ONE ×2 (11:17→13:09)
[2018-05-16] MEDS: VANCOMYCIN HCL INJ 1,000 MG VIAL IVPB ONE ×2 (11:18→13:09)
[2018-05-16] MEDS: BUPIVACAINE 0.25% W/EPI 50 ML VIAL INJ ONE ×2 (11:18→13:08)
--- NOTE | 2018-05-16 11:26 | RAD ---
Single frontal view pelvis Indication: PREOP for knee surgery. Comparison: None. Impression: No acute fracture of the pelvis identified. Mild joint space narrowing of the bilateral hips with tiny joint line osteophytes. Minimal pubic symphysis osteoarthritis. Electronically signed by: Frederick Ernst MD 05/16/2018 11:23 AM [facility] [place]
[2018-05-16] MEDS ORDERED: MORPHINE SULFATE INJ 10 MG/ML VIAL IV ONE (14:25)
[2018-05-16] MEDS ORDERED: HYDROmorphone HCL INJ 2 MG/ML VIAL ONE (14:29)
[2018-05-16] MEDS ORDERED: ceFAZolin SODIUM 2 GRAMS PREMI 2 GM in PREMIX BAG 1 BAG IVPB SCH ×2 (17:30→19:00)
[2018-05-16] MEDS: CELECOXIB 100 MG CAP PO SCH (18:06)
--- NOTE | 2018-05-16 19:43 | RAD ---
EXAM DESCRIPTION: Knee,Right 2 or More Views CLINICAL HISTORY: 48 years, Male, TKA COMPARISON: None TECHNIQUE: Two views of the right knee FINDINGS: Total right knee arthroplasty is seen with normal alignment of femoral and tibial components. No complicating fracture or bony destructive lesion. Normal alignment on frontal and lateral views. Some air in the soft tissues is seen anteriorly consistent with recent surgical placement. Small suprapatellar knee joint effusion is present. IMPRESSION: Total right knee arthroplasty. Electronically signed by: Serge Sylvester MD 05/16/2018 7:40 PM [facility]
[2018-05-16] MEDS ORDERED: GABAPENTIN 300 MG CAP ONE (20:47)
[2018-05-16] MEDS ORDERED: METOPROLOL TARTRATE 50 MG TAB ONE (20:47)
[2018-05-16] MEDS ORDERED: LISINOPRIL 10 MG TAB ONE (20:47)
[2018-05-16] MEDS ORDERED: ENOXAPARIN SODIUM 30 MG/0.3 ML SYG SUBCU ONE (20:48)
[2018-05-16] MEDS ORDERED: ceFAZolin SODIUM 2 GRAMS PREMI 50 ML IVPB ONE (20:48)
[2018-05-16] MEDS ORDERED: NON-FORMULARY MEDICATION 1 EA MIS (Metoprolol Tartrate [Metoprolol Tartrate] 50 MG) PO SCH (21:00)
[2018-05-16] MEDS ORDERED: NON-FORMULARY MEDICATION 1 EA MIS (Lisinopril [Lisinopril] 40 MG) PO SCH (21:00)
[2018-05-16] MEDS ORDERED: NON-FORMULARY MEDICATION 1 EA MIS (Gabapentin [Gabapentin] 600 MG) PO SCH (21:00)
[2018-05-16] MEDS: rifAMPin 300 MG CAP PO SCH (21:29)
[2018-05-16] MEDS: ceFAZolin SODIUM 2 GRAMS PREMI 2 GM in PREMIX BAG 1 BAG IVPB SCH (21:33)
[2018-05-16] MEDS: CETIRIZINE HCL 10 MG TAB PO SCH (21:34)
[2018-05-16] MEDS: NICOTINE PATCH 14 MG TD SCH (21:37)
[2018-05-16] MEDS: DOCUSATE CALCIUM 240 MG CAP PO SCH (21:39)
[2018-05-16] MEDS ORDERED: DEX 5% W/NACL 0.45% 1000ML 1,000 ML IVS ONE (21:43)
--- NOTE | 2018-05-16 22:01 | CONS ---
DATE OF CONSULTATION: 05/16/18 SUPERVISING PHYSICIAN: Jayce Brownlee M.D. REASON FOR CONSULTATION: Right total knee arthroplasty. HISTORY OF PRESENT ILLNESS: This is a 48 year-old male patient who has a history of pain in his right knee. It has been going on for years and has gotten progressively worse. He has failed conservative measures and has requested operative intervention per Dr. Jagdish Coats, orthopedic surgeon. Today, Mr. Bautista was admitted to the hospital and had a right total knee arthroplasty. He had no problems intraoperatively and I am seeing the patient postoperatively in consultation. PAST MEDICAL HISTORY: 1. Hypertension. 2. Osteoarthritis of the knee. 3. Chronic neck pain on Hydrocodone. 4. Hyperlipidemia. 5. Depression with anxiety. 6. Peripheral vascular disease. 7. Obesity. PAST SURGICAL HISTORY: 1. Right knee scope. 2. Neck surgery times 2. 3. Facial reconstruction surgery. 4. Nasal surgery. OUTPATIENT MEDICATIONS: 1. Amlodipine. 2. Wellbutrin. 3. Zyrtec. 4. Vitamin D3. 5. Clotrimazole. 6. Fluticasone. 7. Gabapentin. 8. Hydrochlorothiazide. 9. Hydrocodone. 10. Lisinopril. 11. Meloxicam. 12. Metoprolol. ALLERGIES: IODINE AND MORPHINE. SOCIAL HISTORY: He lives in [place]. He works in the [employer]. He quit smoking about 2 years ago but he continues to use vapor cigarettes. Prior to his quitting cigarette smoking 2 years ago, for several years he smoked 3/4 of a pack of cigarettes. About 4 years ago he had been smoking 2 to 2-1/2 packs of cigarettes daily for 25 years. He denies any alcoholic beverages or illicit drug use. REVIEW OF SYSTEMS: Negative except as per History of Present Illness. PHYSICAL EXAMINATION: VITAL SIGNS: Temperature 97.4, heart rate 77, blood pressure 168/81, respiratory rate 19, O2 sat is 96% on 2 liters nasal cannula. GENERAL: This is a 48 year-old male patient who is morbidly obese. He is in no acute distress. HEENT: Normocephalic and atraumatic. Pupils are equal and reactive. Oropharynx is clear. NECK: Supple without mass. RESPIRATORY: He is diminished at the bases but otherwise clear to auscultation. CHEST: There is equal rise and fall of the chest with inspiration and expiration. HEART: Regular rate and rhythm. GASTROINTESTINAL: Abdomen is soft, nondistended, non-tender. Bowel sounds are positive. EXTREMITIES: His right leg is in the CPM machine. His dressing is dry and intact. Bilateral pedal pulses are +2. SKIN: Warm and dry. NEUROLOGIC: He is awake, alert and oriented times three. Cranial nerves II-XII are grossly intact. LABORATORY: There are no labs or films to report at this time. ASSESSMENT: 1. Osteoarthritis of the right knee status post right total knee arthroplasty performed by Dr. Jagdish Coats, orthopedic surgeon. Postoperative day #0. 2. Hypertension. 3. Chronic pain syndrome, mostly neck pain on Hydrocodone. 4. Depression with anxiety. 5. Tobacco abuse. PLAN: We will continue present supportive care. I have restarted his home medications with the exception of his Mobic. He will begin his physical therapy for strengthening and conditioning tomorrow. Orthopedic issues will be per Dr. Jagdish Coats, orthopedic surgeon. I have encouraged good pulmonary hygiene and I have ordered a nicotine patch. Will continue to monitor him closely and follow as needed. #[id number] [facility]
[2018-05-16] MEDS ORDERED: VANCOMYCIN HCL INJ 1,000 MG in SODIUM CHLORIDE 0.9% 250ML 250 ML IVPB SCH (22:30)
[2018-05-16] MEDS: ENOXAPARIN SODIUM 30 MG/0.3 ML SYG SUBCU SCH (23:03)
[2018-05-17] MEDS ORDERED: SODIUM CHLORIDE 0.9% 250ML 250 ML ONE ×2 (00:41→12:52)
[2018-05-17] MEDS: VANCOMYCIN HCL INJ 1,000 MG in SODIUM CHLORIDE 0.9% 250ML 250 ML IVPB SCH ×2 (02:39→13:03)
[2018-05-17] MEDS ORDERED: ceFAZolin SODIUM 2 GRAMS PREMI 50 ML IVPB ONE ×2 (05:04→12:27)
[2018-05-17] MEDS: ceFAZolin SODIUM 2 GRAMS PREMI 2 GM in PREMIX BAG 1 BAG IVPB SCH ×2 (05:13→12:36)
[2018-05-17] MEDS: HYDROcodone 5MG/APAP 325MG 1 EA TAB PO PRN ×3 (06:37→15:01)
[2018-05-17] MEDS ORDERED: GABAPENTIN 300 MG CAP ONE (07:20)
[2018-05-17] MEDS ORDERED: METOPROLOL TARTRATE 50 MG TAB ONE (07:21)
[2018-05-17] MEDS ORDERED: Wellbutrin 100 MG TAB ONE (07:21)
[2018-05-17] MEDS: CELECOXIB 100 MG CAP PO SCH ×2 (07:39→16:06)
--- NOTE | 2018-05-17 08:14 | PN ---
DATE: 05/17/18 SUBJECTIVE: He is doing well. He is up and eating without complaints. OBJECTIVE: Afebrile. Vital signs stable. Dressing is clean, dry and intact. ASSESSMENT: Status post total knee arthroplasty. PLAN: He will begin weightbearing as tolerated today. [facility][id number] [facility]
[2018-05-17] MEDS: hydroCHLOROthiazide 25 MG TAB PO SCH (09:16)
[2018-05-17] MEDS: GABAPENTIN 300 MG CAP PO SCH ×3 (09:16→20:56)
[2018-05-17] MEDS: METOPROLOL TARTRATE 50 MG TAB PO SCH ×2 (09:16→20:56)
[2018-05-17] MEDS: rifAMPin 300 MG CAP PO SCH ×2 (09:16→20:57)
[2018-05-17] MEDS: MAGNESIUM OXIDE 400 MG TAB PO SCH (09:16)
[2018-05-17] MEDS: FLUTICASONE PROP 0.05% NASAL 16 GM BTTL BNAS SCH (09:16)
[2018-05-17] MEDS: NICOTINE PATCH 14 MG TD SCH (09:16)
[2018-05-17] MEDS: SULFA/TRIMETH 800/160 (DS) TAB 1 EA TAB PO SCH ×2 (09:24→20:56)
[2018-05-17] MEDS: BUPROPION HCL 100 MG PO SCH (10:08)
[2018-05-17] MEDS: ENOXAPARIN SODIUM 30 MG/0.3 ML SYG SUBCU SCH ×2 (10:38→23:01)
--- NOTE | 2018-05-17 11:58 | OP ---
DATE OF PROCEDURE: 05/16/18 PREOPERATIVE DIAGNOSIS: 1. Severe arthritis of the knee. 2. Varus deformity. POSTOPERATIVE DIAGNOSIS: 1. Severe arthritis of the knee. 2. Varus deformity. PROCEDURE: 1. Total knee arthroplasty. SURGEON: Jagdish Coats MD. BENCH WORKER BINDING: Wolf Yarbrough CST, SA-C. ANESTHESIA: General anesthesia. COMPLICATIONS: None. FINDINGS: Severe osteoarthritis of the knee. INDICATION: Mr. Bautista has a history of severe knee pain. He has had conservative measures, however, has failed to gain relief. Because of his ongoing symptoms, he has requested operative intervention. After discussing the risks, benefits and alternatives to that, the patient has given informed consent for total knee arthroplasty. PROCEDURE: The patient was brought to the Operating Room and placed in supine position. General anesthesia was induced and the patient's leg was sterilely prepped and draped. Following prepping and draping, the distal femur was exposed and using an intramedullary guide, the distal femoral cut was made. The appropriate sized cutting block was measured, pinned into place, and the anterior, posterior, and chamfer cuts were made. The ACL was transected and the tibia was subluxed. Both the medial and lateral menisci were removed. An intramedullary guide was used to make the proximal tibial cut. The appropriate sized base plate was placed and a trial polyethylene was placed. The trial femur was placed, the knee was reduced, and the knee was taken through a range of motion. The knee was stable in anterior, posterior, varus and valgus stress. The patella tracked anatomically without evidence of subluxation or dislocation. After trialing, the trial components were removed and the bony surfaces were thoroughly irrigated with saline. Following irrigation, the surfaces were dried and the final components were cemented into place. The excess cement was removed and the remaining cement was allowed to cure. The knee was again taken through a range of motion to confirm stability. The wound was then irrigated with saline and closure was performed using PDS to approximate the arthrotomy followed by closure of the subcutaneous tissues with a combination of running and interrupted Monocryl sutures. Sterile dressing was placed. The patient was awoken from anesthesia and taken to Recovery. POSTOPERATIVE PLAN: The patient will be weight-bearing as tolerated on postoperative day 1. COMPONENTS: [place] Triathlon knee, size 7 femur, size 7 tibia, 9 mm insert. [facility][id number] [facility]
[2018-05-17] MEDS ORDERED: VANCOMYCIN HCL INJ 1,000 MG VIAL IVPB ONE (12:53)
[2018-05-17] MEDS: CYCLOBENZAPRINE HCL 10 MG TAB PO PRN (13:56)
[2018-05-17] MEDS: traMADol HCL 50 MG TAB PO PRN (20:18)
--- NOTE | 2018-05-17 20:32 | PN ---
DATE: 05/17/18 SUPERVISING PHYSICIAN: Jayce Brownlee M.D. SUBJECTIVE: The patient is sitting up in his chair. He is sleeping and awakens easily. Has no complaints of chest pain or shortness of breath. No nausea or vomiting. Feels his therapy went quite well today. OBJECTIVE: VITAL SIGNS: Temperature 98.3, heart rate 71, blood pressure 114/70, respiratory rate 18, O2 sat 97% on room air. RESPIRATORY: Essentially clear to auscultation bilaterally. He is diminished at the bases. CARDIAC: Regular rate and rhythm. GASTROINTESTINAL: Abdomen is soft, nondistended, non-tender. Bowel sounds are positive. EXTREMITIES: The dressing to his right knee is dry and intact. It is secured with an Simon bandage. Bilateral pedal pulses are palpable at +2. NEUROLOGIC: He is awake, alert and oriented times three. LABORATORY: Hemoglobin 10.8, hematocrit 32.1. All other labs and films have been reviewed via the EMR. ASSESSMENT: 1. Osteoarthritis of the right knee status post right total knee arthroplasty performed by Dr. Jagdish Coats, orthopedic surgeon. Postoperative day #1. 2. Hypertension. 3. Chronic pain syndrome, most likely neck pain on Hydrocodone. 4. Depression with anxiety. 5. Tobacco abuse. PLAN: We will continue present supportive care. Orthopedic issues will be per Dr. Jagdish Coats, orthopedic surgeon. He will continue with his physical therapy for strengthening and conditioning with Physical Therapy tomorrow. At this point he plans to participate in outpatient physical therapy at [facility] Physical Therapy Department. Anticipated day of discharge is Monday. Until then will continue to monitor him closely and follow as needed. [facility][id number] [facility]
[2018-05-17] MEDS: CETIRIZINE HCL 10 MG TAB PO SCH (20:56)
[2018-05-17] MEDS: DOCUSATE CALCIUM 240 MG CAP PO SCH (20:56)
[2018-05-17] MEDS ORDERED: LISINOPRIL 10 MG TAB PO SCH (21:00)
[2018-05-18] MEDS: traMADol HCL 50 MG TAB PO PRN ×2 (05:16→12:14)
[2018-05-18] MEDS: CELECOXIB 100 MG CAP PO SCH (07:58)
[2018-05-18] MEDS: CYCLOBENZAPRINE HCL 10 MG TAB PO PRN (08:18)
[2018-05-18] MEDS: HYDROcodone 5MG/APAP 325MG 1 EA TAB PO PRN (08:18)
[2018-05-18] MEDS: BUPROPION HCL 100 MG PO SCH (08:19)
[2018-05-18] MEDS: NICOTINE PATCH 14 MG TD SCH (08:19)
[2018-05-18] MEDS: FLUTICASONE PROP 0.05% NASAL 16 GM BTTL BNAS SCH (08:19)
[2018-05-18] MEDS: SULFA/TRIMETH 800/160 (DS) TAB 1 EA TAB PO SCH (08:19)
[2018-05-18] MEDS: MAGNESIUM OXIDE 400 MG TAB PO SCH (08:20)
[2018-05-18] MEDS: METOPROLOL TARTRATE 50 MG TAB PO SCH (08:20)
[2018-05-18] MEDS: hydroCHLOROthiazide 25 MG TAB PO SCH (08:20)
[2018-05-18] MEDS: rifAMPin 300 MG CAP PO SCH (08:20)
[2018-05-18] MEDS: GABAPENTIN 300 MG CAP PO SCH ×2 (08:30→15:52)
--- NOTE | 2018-05-18 08:49 | PN ---
DATE: 05/18/18 SUBJECTIVE: Mr. Bautista is doing really well. He is up to a chair and has walked already today. OBJECTIVE: Afebrile. Vital signs stable. Wound is clean. There are no signs or symptoms of infection. ASSESSMENT: Status post total knee arthroplasty. PLAN: The plan at this point is for continued weightbearing as tolerated. He will likely be discharged today. [facility][id number] [facility]
[2018-05-18] MEDS ORDERED: SODIUM CHLORIDE 0.9% (FLUSH) 10 ML SYG IV SCH (09:00)
[2018-05-18] MEDS ORDERED: Wellbutrin 100 MG TAB PO SCH (09:00)
[2018-05-18] MEDS: ENOXAPARIN SODIUM 30 MG/0.3 ML SYG SUBCU SCH (11:02)
[2018-05-18 14:05] VITALS: BP 116/72; TEMP 97.5; O2SAT 95
[2018-05-18] MEDS ORDERED: PNEUMOCOCCAL VACCINE 0.5 ML INJ IM ONE (15:28)
[2018-05-18] MEDS ORDERED: INFLUENZA VIRUS VACC (ADULT) 0.5 ML SYG IM ONE (15:28)
--- NOTE | 2018-05-18 21:14 | DS ---
SUPERVISING PHYSICIAN: Jayce Brownlee M.D. DISCHARGE DIAGNOSIS: 1. Osteoarthritis of the right knee status post right total knee arthroplasty performed by Dr. Jagdish Coats, orthopedic surgeon. Postoperative day #2. 2. Hypertension. 3. Chronic pain syndrome, mostly neck pain on Hydrocodone being managed by Dr. Sneha Teran. 4. Depression with anxiety. 5. Tobacco abuse. HISTORY OF PRESENT ILLNESS: This is a 48 year-old male patient who has a history of pain in his right knee. It has been going on for years and has gotten progressively worse. He failed conservative measures and requested operative intervention per Dr. Jagdish Coats, orthopedic surgeon. On the date of admission, he was taken to surgery for a right total knee. There were no complications intraoperatively. I saw the patient postoperatively as a consultation. HOSPITAL COURSE: The patient continued with physical therapy for strengthening and conditioning. Dr. Coats also wanted the patient to complete his antibiotics that he gave him prior to his operative procedure. Those were continued as were his home medications. A walker was ordered. The patient will be discharged home today in stable condition. LABORATORY: Hemoglobin and hematocrit on day 1 postoperatively were 10.8 and 32.1. DISCHARGE PLAN: The patient will be discharged home in stable condition. He is to resume his previous medications, including his Hydrocodone from Dr. Teran. In the hospital, he has required some Tramadol in addition to his Hydrocodone for pain control. I spoke with Dr. Teran about prescribing the Tramadol to the patient and he said it would not void his pain contract. He will also be given Xarelto for an anticoagulant for 9 additional days. He has a followup with Dr. Coats within the next 2 weeks. He also should followup with Dr. Teran within the next 2 weeks. He is to return to the hospital or call Dr. Coats or Dr. Teran for any problems or complications. DISCHARGE MEDICATIONS: 1. Vitamin D3. 2. Meloxicam. 3. Hydrochlorothiazide. 4. Fluticasone propionate. 5. Clotrimazole cream. 6. Amlodipine. 7. Metoprolol tartrate. 8. Lisinopril. 9. Gabapentin. 10. Hydrocodone. 11. Cetirizine. 12. Wellbutrin. 13. Bactrim. 14. Rifampin. 15. Cyclobenzaprine. 16. Tramadol. 17. Xarelto. [facility][id number] [facility]
[2018-05-19] MEDS ORDERED: MAGNESIUM HYDROXIDE 30 ML UD PO ONE (21:00)
[2018-05-19] MEDS ORDERED: BISACODYL SUPPOSITORY 10 MG PR ONE (21:00)
== END 2018-05-18 16:55 | disposition home or self-care (01) | DRG 470 ==
LOC: AMB 05:33 → MS 15:15
PROVIDERS: ADMIT Orthopaedic Surgery; ATTEND Orthopaedic Surgery
PROC: 0SRC0J9 Replacement of Right Knee Joint with Synthetic Substitute, Cemented, Open Approach (ICD-10-PCS; principal; 2018-05-16 10:24)
DX: M17.11 Unilateral primary osteoarthritis, right knee (principal); Z68.41 Body mass index [BMI] 40.0-44.9, adult; I10 Essential (primary) hypertension; G89.4 Chronic pain syndrome; M54.2 Cervicalgia; F41.8 Other specified anxiety disorders; E78.5 Hyperlipidemia, unspecified; I73.9 Peripheral vascular disease, unspecified; E66.9 Obesity, unspecified; Z87.891 Personal history of nicotine dependence; Z98.1 Arthrodesis status; Z91.048 Other nonmedicinal substance allergy status; Z88.5 Allergy status to narcotic agent; Z79.1 Long term (current) use of non-steroidal anti-inflammatories (NSAID); Z79.891 Long term (current) use of opiate analgesic; Z79.899 Other long term (current) drug therapy

== ENCOUNTER → 2018-06-21 | Outpatient (CLI) | payer BC ==
--- NOTE | 2018-06-21 08:56 | CT ---
EXAM DESCRIPTION: Abdoment/Pelvis w/o Contrast CLINICAL HISTORY: 48 years, Male, HEMATURIA COMPARISON: None. TECHNIQUE: CT of the abdomen and pelvis is performed according to our non contrast protocol. FINDINGS: The lung bases are clear. Heart size is normal. Liver, spleen, and pancreas are unremarkable. Adrenal glands appear normal. The right kidney is unremarkable. The left kidney is unremarkable. No renal stones or hydronephrosis. Small bowel loops appear normal in caliber with normal wall thickness. There is no lymphadenopathy, inflammation, or free fluid observed. In the pelvis, the appendix is not seen. No inflammation around the cecum or terminal ileum or sigmoid colon. No stones in the distal ureters or bladder. Bladder appears thick-walled but incompletely distended. Rectal wall thickness is normal for degree of distention. No free fluid or mass in the pelvis. Prostate appears normal in size with coarse calcification in the inferior right lateral aspect. No inguinal or lower pelvic adenopathy. Coronal and sagittal reformatted images confirm the findings. IMPRESSION: No acute upper abdominal process. No acute process in the pelvis. This exam was performed according to our departmental dose-optimization program, which includes automated exposure control, adjustment of the mA and/or kV according to patient size and/or use of iterative reconstruction technique. Total DLP equals 1339.18 mGycm. Electronically signed by: Serge Sylvester MD 06/21/2018 8:53 AM CDT
== END ==
LOC: CT 08:00
PROVIDERS: ATTEND Family Medicine
DX: R31.21 Asymptomatic microscopic hematuria (principal)

== ENCOUNTER 2018-07-03 05:49 | Day surgery (SDC) | payer BC ==
[2018-07-03] MEDS ORDERED: LIDOCAINE 1% 10 ML VIAL INJ ONE (07:00)
[2018-07-03] MEDS ORDERED: PROPOFOL 200 MG/20 ML VIAL IV ONE (07:00)
[2018-07-03] MEDS ORDERED: LACTATED RINGERS 1,000 ML ONE (07:40)
[2018-07-03] MEDS: HYDROmorphone HCL INJ 2 MG/ML VIAL ONE ×4 (11:35→12:15)
[2018-07-03] MEDS ORDERED: KETOROLAC TROMETHAMINE INJ 30 MG/ML VIAL ONE (12:01)
[2018-07-03] MEDS ORDERED: HYDROcodone 5MG/APAP 325MG 1 EA TAB PO ONE (12:30)
[2018-07-03] MEDS ORDERED: HYDROcodone 5MG/APAP 325MG 1 EA TAB ONE (12:30)
[2018-07-03 14:03] VITALS: TEMP 97.3
[2018-07-03 14:06] VITALS: BP 128/96; O2SAT 98
--- NOTE | 2018-07-04 08:23 | OP ---
DATE OF PROCEDURE: 07/03/18 PREOPERATIVE DIAGNOSIS: 1. Arthrofibrosis of the right knee. POSTOPERATIVE DIAGNOSIS: 1. Arthrofibrosis of the right knee. PROCEDURE: 1. Closed manipulation under anesthesia. SURGEON: Jagdish Coats MD. ASTROPHYSICS PROFESSOR: Wolf Yarbrough CST, SA-C. ANESTHESIA: Conscious sedation. COMPLICATIONS: None. FINDINGS: Preoperative range of motion from 0 to about 90 degrees. Postoperative range of motion from 0 to about 110 degrees. INDICATION: Mr. Bautista has a history of total knee arthroplasty which was uncomplicated, however, he had difficulty with obtaining range of motion postoperatively. Because of that, we discussed the potential for closed manipulation. After discussing the risks, benefits and alternatives to that, he gave informed consent for that. PROCEDURE: The patient was brought to the Operating Room and placed in the supine position. Conscious sedation was administered and he was hyperflexed. Palpable and audible scar tissue was ruptured during the procedure. Following that, the patient was taken back to the Day Surgery Unit. POSTOPERATIVE PLAN: He is going to begin immediate physical therapy and he has been counseled on doing aggressive range of motion exercises while at home as well. #[id number] [facility]
== END 2018-07-03 12:55 | disposition home or self-care (01) ==
LOC: AMB 05:49
PROVIDERS: ATTEND Orthopaedic Surgery
DX: M24.661 Ankylosis, right knee (principal); I10 Essential (primary) hypertension; E66.9 Obesity, unspecified; F17.200 Nicotine dependence, unspecified, uncomplicated; Z96.651 Presence of right artificial knee joint; Z88.8 Allergy status to other drugs, medicaments and biological substances; Z79.899 Other long term (current) drug therapy
CPT/HCPCS: 01380; 27570; 80307; J1170; J1885; J3490; J7120

== ENCOUNTER → 2018-09-11 | Outpatient (CLI) | payer BC | LOC: GMAM 13:24 | PROVIDERS: ATTEND Family Medicine | DX: Z12.5 Encounter for screening for malignant neoplasm of prostate (principal); I10 Essential (primary) hypertension; R73.9 Hyperglycemia, unspecified ==